=== PATIENT | male | born 1950 | race Caucasian/White ===

== ENCOUNTER → 2020-11-01 | Day surgery (SDC) | payer OTHER ==
[2020-10-31 13:51] LABS: COVID AG,FIA SOURCE NASAL SWAB
[~2020-11-01] VITALS: Ht 170.2 cm; Wt 81.8 kg
[~2020-11-01] MED LIST: ASPI-1450 PO; ATOR20TA65 PO; BALANCED SALT 15 ML OPHTHALMIC IRRIG.SOLN ONE; CHONDR SULF A SOD/HYALURONATE 1.05 ML KIT IO ONE; EPINEPHrine 1:10,000 [1 MG/10 ML] SYRINGE ONE; FentaNYL CITRATE PF 100 MCG/2 ML VIAL IVP ONE; HYALURONATE SOD/CHONDROITIN SOD 0.5 ML VIAL IO ONE; KETOROLAC TROMETHAMINE 0.5% 5 ML OPHTHALMIC SOLUTION ONE; LIDOCAINE/PF 1% 2 ML VIAL ONE; LISI-809 PO; MECL-160 PO; MIDAZOLAM HCL 2 MG/2 ML VIAL IVP ONE; MOXIFLOXACIN HCL 0.5% 3 ML OPHTHALMIC SOLUTION ONE; NEOMYCIN/POLYMYXIN B/DEXAMETH 3.5 GM OPHTHALMIC OINTMENT ONE; OMEP20CA12 PO; PHENYLEPHRINE HCL 2.5% 2 ML OPHTHALMIC SOLUTION ONE; POVIDONE-IODINE 10% 15 ML SOLUTION UD ONE; RINGERS SOLUTION,LACTATED 500 ML IV ONE; TETRACAINE HCL/PF 0.5% 4 ML OPHTHALMIC SOLUTION ONE; TROPICAMIDE 1% 2 ML OPHTHALMIC SOLUTION ONE
[2020-11-01] MEDS: MOXIFLOXACIN HCL 0.5% 3 ML OPHTHALMIC SOLUTION OD SCH ×3 (08:38→08:50)
[2020-11-01] MEDS: KETOROLAC TROMETHAMINE 0.5% 5 ML OPHTHALMIC SOLUTION OD SCH ×3 (08:38→08:50)
[2020-11-01] MEDS: PHENYLEPHRINE HCL 2.5% 2 ML OPHTHALMIC SOLUTION OD SCH ×3 (08:38→08:50)
[2020-11-01] MEDS: TROPICAMIDE 1% 2 ML OPHTHALMIC SOLUTION OD SCH ×3 (08:38→08:50)
== END | disposition home or self-care (01) ==
LOC: SURGERY 07:32
PROVIDERS: ATTEND Ophthalmology
DX: H25.11 Age-related nuclear cataract, right eye (principal); H40.1112 Primary open-angle glaucoma, right eye, moderate stage; I10 Essential (primary) hypertension; Z79.899 Other long term (current) drug therapy; Z87.891 Personal history of nicotine dependence; Z72.89 Other problems related to lifestyle; Z98.890 Other specified postprocedural states; E78.00 Pure hypercholesterolemia, unspecified
CPT/HCPCS: 66174; 66984; 87426; A9575; C9803; J0171; J2250; J3010; J3490; V2632

== ENCOUNTER 2020-12-27 07:10 | Day surgery (SDC) | payer OTHER ==
[2020-12-26 11:32] LABS: COVID AG,FIA SOURCE NASOPHARYNGEAL
[~2020-12-27 07:10] MED LIST changes: -BALANCED SALT 15 ML OPHTHALMIC IRRIG.SOLN ONE; -CHONDR SULF A SOD/HYALURONATE 1.05 ML KIT IO ONE; -EPINEPHrine 1:10,000 [1 MG/10 ML] SYRINGE ONE; -FentaNYL CITRATE PF 100 MCG/2 ML VIAL IVP ONE; -HYALURONATE SOD/CHONDROITIN SOD 0.5 ML VIAL IO ONE; -LIDOCAINE/PF 1% 2 ML VIAL ONE; -MIDAZOLAM HCL 2 MG/2 ML VIAL IVP ONE; -NEOMYCIN/POLYMYXIN B/DEXAMETH 3.5 GM OPHTHALMIC OINTMENT ONE; -POVIDONE-IODINE 10% 15 ML SOLUTION UD ONE; -TETRACAINE HCL/PF 0.5% 4 ML OPHTHALMIC SOLUTION ONE
[2020-12-27] MEDS ORDERED: EPINEPHrine 1:1,000 [1 MG/ML] AMP ET ONE (07:11)
[2020-12-27] MEDS ORDERED: POVIDONE-IODINE 10% 15 ML SOLUTION UD TP ONE (07:11)
[2020-12-27] MEDS ORDERED: TETRACAINE HCL/PF 0.5% 4 ML OPHTHALMIC SOLUTION OD ONE (07:11)
[2020-12-27] MEDS ORDERED: CHONDR SULF A SOD/HYALURONATE 1.05 ML KIT IO ONE (07:11)
[2020-12-27] MEDS: TROPICAMIDE 1% 2 ML OPHTHALMIC SOLUTION OS SCH ×3 (07:49→07:59)
[2020-12-27] MEDS: KETOROLAC TROMETHAMINE 0.5% 5 ML OPHTHALMIC SOLUTION OS SCH ×3 (07:49→07:59)
[2020-12-27] MEDS: PHENYLEPHRINE HCL 2.5% 2 ML OPHTHALMIC SOLUTION OS SCH ×3 (07:50→07:59)
[2020-12-27] MEDS: MOXIFLOXACIN HCL 0.5% 3 ML OPHTHALMIC SOLUTION OS SCH ×3 (07:50→07:59)
[2020-12-27] MEDS ORDERED: FentaNYL CITRATE PF 100 MCG/2 ML VIAL IVP ONE (12:00)
[2020-12-27] MEDS ORDERED: MIDAZOLAM HCL 2 MG/2 ML VIAL IVP ONE (12:00)
== END 2020-12-27 10:15 | disposition home or self-care (01) ==
LOC: SURGERY 07:10
PROVIDERS: ATTEND Ophthalmology
DX: H25.12 Age-related nuclear cataract, left eye (principal); I10 Essential (primary) hypertension; Z79.899 Other long term (current) drug therapy; Z98.890 Other specified postprocedural states
CPT/HCPCS: 66984; 87426; A9575; C9803; J0171; J2250; J3010; J7120; V2632; Q9967